=== PATIENT | female | born 1985 | race Caucasian/White ===

== ENCOUNTER 2017-09-26 21:50 | Emergency (ER) | payer SELFPAY ==
[2017-09-26] MEDS ORDERED: DUONEB 0.5 MG/3 MG ONE ×2 (21:58→23:17)
[2017-09-26 22:04] VITALS: BP 139/80; BMI 33.8
[2017-09-26] MEDS ORDERED: DUONEB 0.5 MG/3 MG NEB ONE ×3 (22:05→23:37)
--- NOTE | 2017-09-26 23:16 | DR.GENAD ---
HPI - PCP Primary Care Physician: NFD - Complaint/Symptoms Chief Complaint Doctors Comments: Patient presents with complaint of being out of her asthma medication. She recently moved to area and can not find her inhalers. She has been an asthmatic for eight years. No recent hospitalizations Chief Complaint:: SOB ASTHMA EXACERBATION - Source History Provided: Patient - Mode of Arrival Mode of Arrival: Ambulatory - Timing Onset of Chief Complaint: 09/26/17 PMH - PMH Past Medical History: Yes Past Medical History: Asthma Past Surgical History: Yes Surgical History: - Family History History of Family Medical Conditions: Yes Family Medical History: Diabetes Mellitus, Hypertension - Social History Does patient currently use any type of tobacco product: No Have you used tobacco products in the last 12 months: No Type of Tobacco Use: None Does any household member use tobacco: No Alcohol Use: None Do you use any recreational Drugs:: No Lives With: Family Lives Where: Home - infectious screening In the last 2 months have you had wt loss of >10#?: NO Have you had fever, night sweats or hemotysis?: No Have you traveled outside the country in the last 6 months?: No Isolation: Standard ROS - Review of Systems Eyes: No Symptoms Reported ENTM: No Symptoms Reported Respiratoy: No Symptoms Reported Cardiovascular: No Symptoms Reported Gastrointestinal/Abdominal: No Symptoms Reported Genitourinary: No Symptoms Reported Neurological: No Symptoms Reported Musculoskeletal: No Symptoms Reported Integumentary: No Symptoms Reported Hematologic/Lymphatic: No Symptoms Reported Endocrine: No Symptoms Reported Psychiatric: No Symptoms Reported All Other Systems: Reviewed and Negative PE - Vital Signs Vitals: Temperature 98.9 F Pulse Rate 108 Respiratory Rate 30 Blood Pressure 139/80 O2 Sat by Pulse Oximetry 91 - General Limitations: No Limitations General Appearance: Alert, In No Apparent Distress - Head Head Exam: Normal Inspection, Atraumatic - Eyes Eye exam: Normal Appearance, PERRL, EOMI - ENT ENT Exam: Normal Exam External Ear Exam: Normal External Inspection TM/Canal Exam: Bilateral Normal Nose Exam: Normal Nose Exam Mouth Exam: Normal Inspection Throat Exam: Normal Inspection - Neck Neck Exam: Normal Inspection, Full ROM - Chest Chest Inspection: Normal Inspection, Symmetric Chest Wall Rise - Respiratory Respiratory Exam: Normal Lung Sounds Bilat, Prolonged Expiratory Phase Respiratory Exam: Bilateral Wheezing - Cardiovascular Cardiovascular Exam: Regular Rate, Normal Rhythm - Abdominal Exam Abdominal Exam: Normal Inspection, Normal Bowel Sounds Abdominal Tenderness: negative: RUQ, RLQ, LUQ, LLQ, Epigastrium, Suprapubic, Diffuse, Mild, Moderate, Severe, Other - Extremities Extremities Exam: Normal Inspection, Full ROM - Back Back Exam: Normal Inspection, Full ROM - Neurologic Neurological Exam: Alert, Oriented X3, CN II-XII Intact - Psychiatric Psychiatric Exam: Normal Affect, Normal Mood - Skin Skin Exam: Warm, Dry, Normal Color - Diagnosis Discharge Problem: Acute bronchospasm - Discharge Plan Condition: Stable - Follow ups/Referrals Follow ups/Referrals: NFD,None [Primary Care Provider] - 3 days - Instructions
== END 2017-09-26 23:32 | disposition home or self-care (01) ==
LOC: ER 22:11
DX: J98.01 Acute bronchospasm (principal)
CPT/HCPCS: 99282; 99283; J7620

== ENCOUNTER 2017-10-01 10:58 | Emergency (ER) | payer MEDICAID ==
[2017-10-01 11:12] VITALS: BP 142/107; BMI 33.8
[2017-10-01] MEDS ORDERED: SOLU-Medrol 125 MG VIAL IVP ONE (11:36)
--- NOTE | 2017-10-01 11:36 | DR.GENAD ---
HPI - PCP Primary Care Physician: NFD - HPI Comment HPI Comment: EMS CALLED. NEB TREATMENT DURING TRANSPORT. NOW, SYMPTOMS IMPROVED. PATIENT RAN OUT OF MED. - Complaint/Symptoms Chief Complaint Doctors Comments: SOB, WHEEZING AND CHEST PAIN FOR SEVERAL HOURS. Chief Complaint:: PT C/O SEVERE ASTHAM ATTACK. PT WAS UNABLE TO SPEAK. SON CALLED 911. UPON ARRIVAL PT SITTING UP ON EMS STRETCHER REC' A DUO NEB. NOTED NO DISTRESS AT THIS TIME. PT STATES SHE IS OUT OF HER MEDICATIONS. PT JUST MOVED AND HASN'T FOUND A DOCTOR. PT STATES THIS IS THE THIRD DAY IN A ROW THAT SHE HAS HAD A ASTHMA ATTACK. - Nurses notes reviewed Nurses Notes Review: Yes - Source History Provided: Patient - Mode of Arrival Mode of Arrival: EMS - Timing Onset of Chief Complaint: 10/01/17 Came on: Suddenly - Duration Duration: Constant Duration: Hours - Severity Severity: Moderate PMH - PMH Past Medical History: Yes Past Medical History: Asthma, Hypertension Past Surgical History: Yes Surgical History: Past Surgical History Comment: SKIN GRAFT - Family History History of Family Medical Conditions: Yes Family Medical History: Diabetes Mellitus, Hypertension - Social History Does any household member use tobacco: No Alcohol Use: None Do you use any recreational Drugs:: No Lives With: Family Lives Where: Home - infectious screening In the last 2 months have you had wt loss of >10#?: NO Have you had fever, night sweats or hemotysis?: No Have you traveled outside the country in the last 6 months?: No Isolation: Standard ROS - Review of Systems Constitutional: Fatigue Eyes: No Symptoms Reported ENTM: No Symptoms Reported Respiratoy: Productive Cough (YELLOW SPUTUM.), Short of Breath, Wheezing Cardiovascular: Chest Pain Gastrointestinal/Abdominal: No Symptoms Reported Genitourinary: No Symptoms Reported Neurological: No Symptoms Reported Musculoskeletal: No Symptoms Reported Integumentary: No Symptoms Reported Hematologic/Lymphatic: No Symptoms Reported Endocrine: No Symptoms Reported All Other Systems: Reviewed and Negative PE - Vital Signs Vitals: Temperature 98.2 F Pulse Rate 95 Respiratory Rate 22 Blood Pressure 142/107 O2 Sat by Pulse Oximetry 97 - General Limitations: No Limitations General Appearance: In Distress (MILD) - Head Head Exam: Normal Inspection - Eyes Eye exam: Normal Appearance - ENT ENT Exam: Normal External Ear Exam External Ear Exam: Normal External Inspection TM/Canal Exam: Bilateral Normal Nose Exam: Normal Nose Exam Mouth Exam: Normal Inspection Throat Exam: Normal Inspection - Neck Neck Exam: Trachea Midline - Chest Chest Inspection: Symmetric Chest Wall Rise - Respiratory Respiratory Exam: Chest Wall Tenderness Respiratory Exam: Bilateral Wheezing, Bilateral Rhonchi, Lower Wheezing, Lower Rhonchi - Cardiovascular Cardiovascular Exam: Regular Rate, Normal Rhythm, Normal Heart Sounds - Abdominal Exam Abdominal Exam: Normal Bowel Sounds, Soft. negative: Tenderness - Extremities Extremities Exam: Normal Inspection - Back Back Exam: Normal Inspection - Neurologic Neurological Exam: Alert, Oriented X3 - Psychiatric Psychiatric Exam: Normal Affect, Normal Mood - Skin Skin Exam: Normal Color MDM - Differential Diagnosis Differential Diagnosis: ASTHMA EXACERBATION Course - Treatment Treatment: SEE ORDERS. NEB TREATMENT AND IV SOLUMEDROL IN . - Reevaluation 1st: Improved - Education/Counseling Education/Counseling: Patient, Education Educated On: Diagnosis, Needs for Follow Up - Diagnosis Discharge Problem: Asthma attack, Bronchitis - Discharge Plan Disposition: HOME, SELF-CARE Condition: Stable Prescriptions: Albuterol Neb 2.5MG/ 3Ml [Proventil Neb Tx 0.083% 2.5MG/ 3Ml] 1 nebule INH Q6H PRN #30 nebule PRN Reason: Wheezing Azithromycin [Zithromax] 1 dose PO DAILY #6 tab Ipratropium [place] Neb [ATROVENT NEBULE 0.02% *] 1 ea NEB Q6H #30 each Prednisone [Prednisone Tab 10 mg] 10 mg PO QAM #7 tab - Follow ups/Referrals Follow ups/Referrals: NFD,None [Primary Care Provider] - 3 days Joseph Biggs [STAFF PHYSICIAN] - 3 days - Instructions Instructions: Acute Bronchitis, Adult, [id number], Asthma Attack Additional Instructions: RETURN TO ED IF WORSE.
[2017-10-01] MEDS ORDERED: DUONEB 0.5 MG/3 MG NEB ONE (11:42)
[2017-10-01] MEDS ORDERED: SOLU-Medrol 125 MG VIAL ONE (11:43)
[2017-10-01] MEDS ORDERED: DUONEB 0.5 MG/3 MG ONE (11:43)
== END 2017-10-01 12:31 | disposition home or self-care (01) ==
LOC: ER 11:59
DX: J40 Bronchitis, not specified as acute or chronic (principal); J45.909 Unspecified asthma, uncomplicated
CPT/HCPCS: 94640; 96365; 96374; 99282; 99283; J2930; J7620